=== PATIENT | female | born 1985 | race African-American/Black ===

== ENCOUNTER 2023-06-04 22:43 | Emergency (ER) | payer SELFPAY ==
[~2023-06-04] VITALS: Ht 167.6 cm; Wt 59.0 kg
[2023-06-04 22:57] VITALS: BP 170/100; PULSE 140; RESP 19; TEMP 98.7; O2SAT 100
== END 2023-06-04 23:36 | disposition left against medical advice (07) ==
LOC: ER 22:43
DX: R51.9 Headache, unspecified (principal); Z53.21 Procedure and treatment not carried out due to patient leaving prior to being seen by health care provider
CPT/HCPCS: 99281